=== PATIENT | female | born 1985 | race Caucasian/White ===

== ENCOUNTER 2018-08-20 10:18 | Emergency (ER) | payer SELFPAY ==
[~2018-08-20] VITALS: Ht 154.9 cm; Wt 86.2 kg
[2018-08-20 10:20] VITALS: BP_SYST 138
[2018-08-20] MEDS ORDERED: LIDOCAINE/EPI 2% 1:100000 20 ML VIAL INJ ONE (12:30)
[2018-08-20] MEDS ORDERED: SODIUM BICARBONATE 8.4% VIAL 50 MEQ/50 ML VIAL INJ ONE (12:30)
[2018-08-20] MEDS ORDERED: DIPHENHYDRAMINE INJ 50 MG/ML VIAL IVP ONE (12:30)
[2018-08-20] MEDS ORDERED: LIDOCAINE/PRILOCAINE 5 GM CREAM (EMLA) TP ONE (12:30)
[2018-08-20] MEDS ORDERED: MORPHINE 4 MG/ML INJ. SYRINGE IVP ONE (12:30)
[2018-08-20] MEDS ORDERED: ceFAZolin SODIUM 1 GM in D5W 50 ML IV ONE (12:30)
[2018-08-20] MEDS ORDERED: ceFAZolin SODIUM 1 GM VIAL ONE (12:43)
[2018-08-20 14:41] VITALS: BP_SYST 128
== END 2018-08-20 14:41 | disposition home or self-care (01) ==
LOC: SED 10:18
DX: N75.1 Abscess of Bartholin's gland (principal); R03.0 Elevated blood-pressure reading, without diagnosis of hypertension
CPT/HCPCS: 56405; 96365; 96375; 99283; J0690; J1200; J2270

== ENCOUNTER 2018-08-22 09:20 | Emergency (ER) | payer SELFPAY ==
[~2018-08-22] VITALS: Ht 154.9 cm; Wt 86.2 kg
[2018-08-22 09:25] VITALS: BP_SYST 146
[2018-08-22 10:39] LABS: BILIRUBIN,URINE NEGATIVE (NEGATIVE); BLOOD, URINE 2+ (NEGATIVE); CLARITY/URINE CLEAR (CLEAR); COLOR,URINE YELLOW (YELLOW); GLUCOSE,URINE NEGATIVE (NEGATIVE); KETONES,URINE NEGATIVE (NEGATIVE); LEUKOCYTE ESTERASE ,URINE 1+ (NEGATIVE); NITRITE, URINE NEGATIVE (NEGATIVE); PH,URINE 5.5 (5.0-8.0); PROTEIN URINE TRACE (NEGATIVE); UROBILINOGEN,URINE 0.2 (0.2-1.0)
[2018-08-22 10:40] VITALS: BP_SYST 146
[2018-08-22 10:52] LABS: BACTERIA,URINE MODERATE /HPF (None Seen); MUCUS,URINE 2+ /LPF (None Seen); YEAST,URINE None Seen /HPF (None Seen)
[2018-08-22] MEDS ORDERED: LIDOCAINE 4% TOPICAL 50 ML BOTTLE MM ONE ×2 (12:26→12:30)
[2018-08-24 09:37] LABS: CHLAMYDIA TRACHOMATIS NAA Negative (Negative); NEISSERIA GONORRHOEAE NAA Negative (Negative)
== END 2018-08-22 10:40 | disposition home or self-care (01) ==
LOC: SED 09:20
DX: N75.1 Abscess of Bartholin's gland (principal); R03.0 Elevated blood-pressure reading, without diagnosis of hypertension
CPT/HCPCS: 81000-TC; 87086; 87491; 87591; 99283

== ENCOUNTER 2019-01-19 08:31 | Emergency (ER) | payer MEDICAID ==
[~2019-01-19] VITALS: Ht 154.9 cm; Wt 86.2 kg
[2019-01-19 08:35] VITALS: BP_SYST 141
== END 2019-01-19 09:05 | disposition home or self-care (01) ==
LOC: SED 08:31
DX: N76.4 Abscess of vulva (principal)
CPT/HCPCS: 99283